=== PATIENT | female | born 1990 | race Caucasian/White ===

== ENCOUNTER 2016-07-19 14:14 | Emergency (ER) | payer MEDICAID ==
[~2016-07-19] VITALS: Wt 63.2 kg
[2016-07-19] MEDS ORDERED: FAMOTIDINE 20 MG INJ IV STA (16:25)
[2016-07-19] MEDS ORDERED: ONDANSETRON 4 MG INJ IV STA (16:25)
[2016-07-19 17:14] LABS: ADD SCAN DIFF NO
[2016-07-19 17:15] LABS: ADD UMIC YES; EOSINOPHILS # 0.1 10^3/ul (0.0-0.5); HEMATOCRIT 39.1 % (37.0-47.0); HEMOGLOBIN 12.6 g/dl (12.0-16.0); MEAN CORPUSCULAR HEMOGLOBIN 30.7 pg (29.0-33.0); MEAN CORPUSCULAR HGB CONC 32.2 g/dl (32.0-37.0); MEAN CORPUSCULAR VOLUME 95.1 fl (82.0-101.0); MEAN PLATELET VOLUME 9.4 fl (7.4-10.4); PLATELET COUNT 235 10^3/UL (140-415); RED BLOOD COUNT 4.11 10^6/ul (4.20-5.40); RED CELL DISTRIBUTION WIDTH 12.2 % (11.5-14.5); URINE BILIRUBIN (Dip) NEGATIVE (NEGATIVE); URINE BLOOD (Dip) NEGATIVE (NEGATIVE); URINE COLOR LT. YELLOW (YELLOW); URINE GLUCOSE (Dip) NEGATIVE (NEGATIVE); URINE KETONES (Dip) NEGATIVE (NEGATIVE); URINE LEUKOCYTE ESTERASE (Dip) TRACE (NEGATIVE); URINE NITRITE (Dip) NEGATIVE (NEGATIVE); URINE TOTAL PROTEIN (Dip) NEGATIVE (NEGATIVE); URINE UROBILINOGEN (Dip) 0.2 E.U./dL (0.1-1.0); WHITE BLOOD COUNT 3.6 10^3/ul (4.8-10.8)
[2016-07-19 17:30] LABS: ALBUMIN 3.7 g/dl (3.3-4.9)
[2016-07-19 17:31] LABS: POTASSIUM 3.9 mmol/L (3.5-5.1)
[2016-07-19 17:32] LABS: CREATININE 0.71 mg/dl (0.44-1.00)
[2016-07-19 17:33] LABS: ALBUMIN/GLOBULIN RATIO 1.23; BACTERIA,URINE FEW; BILIRUBIN,INDIRECT 1.1 mg/dl (0-1.1); BILIRUBIN,TOTAL 1.1 mg/dl (0.2-1.3); TOTAL PROTEIN 6.7 g/dl (6.1-8.1); URINE RBCS 0-2 /HPF (0)
[2016-07-19 17:34] LABS: CALCIUM 8.9 mg/dl (8.4-10.2)
[2016-07-19 18:00] LABS: LYMPHOCYTES # 1.8 10^3/ul (0.8-2.9); NEUTROPHIL # 1.7 10^3/ul (1.6-7.5)
[2016-07-19] MEDS ORDERED: ONDA8TAB14 PO (18:09)
[2016-07-19] MEDS ORDERED: FAMO-18 PO (18:09)
[2016-07-19] MEDS ORDERED: ACET500C5 PO (18:09)
--- NOTE | 2016-07-19 18:12 | ERD ---
ER Documentation Chief Complaint Date/Time DATE: 07/19/16 TIME: 18:10 Chief Complaint ABDOMINAL PAIN AND FEVER AND HEADACHE SINCE YESTERDAY., VOMITING. HPI This 25-year-old female presents with epigastric abdominal pain fever headache and vomiting since yesterday. She feels like she may have it some bad food. She does lose balance as well which were dark colored although she did take Pepto-Bismol yesterday but threw it up. She denies any previous abdominal problems. She denies . ROS All systems reviewed and are negative except as per history of present illness. Medications Home Meds Active Scripts Famotidine* (Pepcid*) 20 Mg Tablet, 20 MG PO BID for 4 Days, #14 TAB Prov:VICKY CRUZ MD 07/19/16 Acetaminophen* (Tylophen*) 500 Mg Capsule, 1 CAP PO Q6H Y for PAIN AND OR ELEVATED TEMP, #15 CAP Prov:VICKY CRUZ MD 07/19/16 Ondansetron (Ondansetron Odt) 8 Mg Tab.rapdis, 8 MG PO Q6H Y for NAUSEA AND/OR VOMITING, #8 TAB Prov:VICKY CRUZ MD 07/19/16 Allergies Allergies: Coded Allergies: No Known Allergy (Unverified , 07/19/16) PMhx/Soc Medical and Surgical Hx: pt denies Medical Hx, pt denies Surgical Hx History of Surgery: No Anesthesia Reaction: No Hx Neurological Disorder: No Hx Respiratory Disorders: No Hx Cardiac Disorders: No Hx Psychiatric Problems: No Hx Miscellaneous Medical Probl: No Hx Alcohol Use: Yes (5 days/week) Hx Substance Use: Yes Hx Tobacco Use: Yes Smoking Status: Current every day smoker Physical Exam Vitals Vital Signs Date Time Temp Pulse Resp B/P Pulse Ox O2 Delivery O2 Flow Rate FiO2 07/19/16 14:36 98.6 85 20 128/81 98 Physical Exam Const: [] Alert, [id number] per Head: Atraumatic Eyes: Normal Conjunctiva ENT: Normal External Ears, Nose and Mouth. Neck: Full range of motion..~ No meningismus. Resp: Clear to auscultation bilaterally Cardio: Regular rate and rhythm, no murmurs Abd: Soft, minimal epigastric tenderness. non distended. Normal bowel sounds Skin: No petechiae or rashes Back: No midline or flank tenderness Ext: No cyanosis, or edema Neur: Awake and alert Psych: Normal Mood and Affect Result Diagram: 07/19/16 1700 07/19/16 1700 Results 24 hrs Laboratory Tests Test 07/19/16 17:00 Alanine Aminotransferase (ALT/SGPT) 30IU/L Albumin 3.7g/dl Albumin/Globulin Ratio 1.23 Alkaline Phosphatase 72IU/L Anion Gap 16 Aspartate Amino Transf (AST/SGOT) 34IU/L Basophils # 0.010^3/ul Basophils % 0.0% Blood Urea Nitrogen 10mg/dl Calcium Level 8.9mg/dl Carbon Dioxide Level 23mmol/L Chloride Level 104mmol/L Creatinine 0.71mg/dl Direct Bilirubin 0.00mg/dl Eosinophils # 0.110^3/ul Eosinophils % 2.0% Globulin 3.00g/dl Glucose Level 89mg/dl Hematocrit 39.1% Hemoglobin 12.6g/dl Indirect Bilirubin 1.1mg/dl Lipase 32U/L Lymphocytes # 1.810^3/ul Lymphocytes % 51.0% Mean Corpuscular Hemoglobin 30.7pg Mean Corpuscular Hemoglobin Concent 32.2g/dl Mean Corpuscular Volume 95.1fl Mean Platelet Volume 9.4fl Monocytes # 0.010^3/ul Monocytes % 1.0% Neutrophils # 1.710^3/ul Neutrophils % 46.0% Nucleated Red Blood Cells # 0.010^3/ul Nucleated Red Blood Cells % 0.0/100WBC Platelet Count 02367^3/UL Potassium Level 3.9mmol/L Red Blood Count 4.1110^6/ul Red Cell Distribution Width 12.2% Sodium Level 139mmol/L Total Bilirubin 1.1mg/dl Total Protein 6.7g/dl Urine Bacteria FEW Urine Bilirubin NEGATIVE Urine Clarity SLIGHTLY CLOUDY Urine Color LT. YELLOW Urine Epithelial Cells MODERATE Urine Glucose NEGATIVE% Urine Hemoglobin NEGATIVE Urine Ketones NEGATIVE Urine Leukocyte Esterase TRACE Urine Microscopic RBC 0-2/HPF Urine Microscopic WBC 2-5/HPF Urine Nitrite NEGATIVE Urine Specific [place] 1.010 Urine Total Protein NEGATIVE Urine Urobilinogen 0.2 E.U./dL Urine pH 6.0 White Blood Count 3.610^3/ul Current Medications Medications (Trade) Dose Ordered Sig/Kari Route PRN Reason Start Time Stop Time Status Last Admin Dose Admin Ondansetron HCl (Zofran Inj) 4 mg ONCE STAT IV 07/19/16 16:25 07/19/16 16:27 DC 07/19/16 17:01 Famotidine (Pepcid Iv) 20 mg ONCE STAT IV 07/19/16 16:25 07/19/16 16:27 DC 07/19/16 17:01 Procedures/MDM Urine shows trace leukocytes and few bacteria otherwise no acute findings. HCG is negative. CBC shows a white blood cell count 3.6 and hemoglobin normal and platelets normal. CMP and lipase normal. Patient was given Zofran 8 mg by mouth and Tylenol and Pepcid. Patient felt better after observation and treatment. Patient presents with signs and symptoms consistent with food poisoning or gastroenteritis. Signs or symptoms do not suggest appendicitis, hepatobiliary disease, pancreatitis, acute abdomen. She will treated with Zofran, Tylenol Pepcid and further observation at home with bland diet and fluids. The patient was stable with no new complaints during the ER course. Clinically, there is no current evidence to suggest meningitis, sepsis, acute abdomen, pneumonia, acute coronary syndrome, pulmonary embolism, or any other emergent condition appearing to require further evaluation or hospitalization. The patient should certainly return for any new or worsening symptoms per the aftercare instructions. They should otherwise follow-up with her primary care doctor for reevaluation this week. Departure Diagnosis: Primary Impression: Vomiting Vomiting type: unspecified Vomiting Intractability: non-intractable Nausea presence: unspecified Qualified Code: R11.10 - Non-intractable vomiting, presence of nausea not specified, unspecified vomiting type Additional Impression: Abdominal pain Abdominal location: epigastric Qualified Code: R10.13 - Epigastric pain Condition: Stable Patient Instructions: Abdominal Pain, Vomiting (6Y-Adult) Additional Instructions: Labs normal today. Likely food poisoning or viral illness should resolve in the next 1-3 days. Recheck for new or worsening symptoms with primary care doctor. VICKY CRUZ MD Jul 19, 2016 18:12
[2016-07-19 18:23] VITALS: BP 124/76; PULSE 68; RESP 20; TEMP 98.6
== END 2016-07-19 18:24 | disposition home or self-care (01) ==
LOC: FTE 14:14
DX: R11.10 Vomiting, unspecified (principal); R10.13 Epigastric pain; F17.210 Nicotine dependence, cigarettes, uncomplicated
CPT/HCPCS: 36415; 80053; 81001; 83690; 85025; 96374; 96375; J2405; Z7502; Z7610; 81003

== ENCOUNTER 2016-09-13 16:18 | Emergency (ER) | payer SELFPAY ==
[~2016-09-13] VITALS: Ht 157.5 cm; Wt 78.0 kg
[~2016-09-13 16:18] MED LIST: ACET500C5 PO; FAMO-18 PO; ONDA8TAB14 PO
[2016-09-13 16:23] VITALS: Ht 157.5 cm; Wt 78.0 kg
[2016-09-13] MEDS ORDERED: HYDR25SU23 PR (19:18)
[2016-09-13] MEDS ORDERED: DOCU-144 PO (19:18)
[2016-09-13] MEDS ORDERED: ACET500C5 PO (19:18)
--- NOTE | 2016-09-13 19:26 | ERD ---
ER Documentation Chief Complaint Date/Time DATE: 09/13/16 TIME: 19:21 Chief Complaint ABD PAIN x 1 week HPI 25-year-old female patient with a past medical history of hemorrhoids presents the ED complaining of rectal pain and slight streaks of blood in her stools. States that she is afraid to have a bowel movement because it worsens the rectal pain. States that her last bowel movement was this morning. 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 Denies having anal sex or being sexually active. States her last menses was on August 24, 2016. Denies any abdominal pain, nausea , vomiting, diarrhea, chest pain, shortness of breath, fever, chills. ROS All systems reviewed and are negative except as per history of present illness. Medications Home Meds Active Scripts Acetaminophen* (Tylophen*) 500 Mg Capsule, 1 CAP PO Q6H Y for PAIN AND OR ELEVATED TEMP, #20 CAP Prov:DILCIA OLVERA PA-C 09/13/16 Hydrocortisone Acetate (Anusol-Hc) 25 Mg Supp.rect, 1 SUPP VT BID Y for HEMORROID PAIN/ITCHING, #12 SUPP.RECT Prov:DILCIA OLVERA PA-C 09/13/16 Docusate Sodium* (Colace*) 100 Mg Capsule, 100 MG PO TID, #30 CAP Prov:DILCIA OLVERA PA-C 09/13/16 Famotidine* (Pepcid*) 20 Mg Tablet, 20 MG PO BID for 4 Days, #14 TAB Prov:VICKY CRUZ MD 07/19/16 Acetaminophen* (Tylophen*) 500 Mg Capsule, 1 CAP PO Q6H Y for PAIN AND OR ELEVATED TEMP, #15 CAP Prov:VICKY CRUZ MD 07/19/16 Ondansetron (Ondansetron Odt) 8 Mg Tab.rapdis, 8 MG PO Q6H Y for NAUSEA AND/OR VOMITING, #8 TAB Prov:VICKY CRUZ MD 07/19/16 Allergies Allergies: Coded Allergies: No Known Allergy (Unverified , 07/19/16) PMhx/Soc History of Surgery: No Anesthesia Reaction: No Hx Neurological Disorder: No Hx Respiratory Disorders: No Hx Cardiac Disorders: No Hx Psychiatric Problems: No Hx Miscellaneous Medical Probl: No Hx Alcohol Use: Yes (5 days/week) Hx Substance Use: Yes Hx Tobacco Use: Yes Physical Exam Vitals Vital Signs Date Time Temp Pulse Resp B/P Pulse Ox O2 Delivery O2 Flow Rate FiO2 09/13/16 16:23 98.3 70 20 141/87 98 Physical Exam Const: [id number]-[id number], well-nourished. In no acute distress. Head: Atraumatic, normocephalic Eyes: Normal Conjunctiva without injection. No purulent discharge. ENT: Normal external ear, nose. Moist oropharynx without tonsillar exudates. Non -erythematous pharynx. Uvula midline. No drooling. No trismus. Neck: No cervical midline tenderness. Full range of motion. No meningismus. No cervical lymphadenopathy. No JVD. Resp: Clear to auscultation bilaterally. No wheezing, rhonchi, rales, or crackles. No accessory muscle use. No retractions. Cardio: Regular rate and rhythm. No murmurs, rubs or gallops. Abd: Soft, nontender, non distended. Normal bowel sounds. No palpable masses. No rebound tenderness. No guarding. Negative McBurney's point. Negative psoas sign. Negative obturator sign. Patient gave consent to do a rectal exam. Tenderness to palpation of the superior portion of patient's anus. External hemorrhoid noted. Nonthrombosed hemorrhoid. No surrounding erythema, fluctuance , induration, edema, bleeding noted. No fissures noted. Skin: No petechiae or rashes Back: No midline tenderness. No CVA tenderness. Ext: No cyanosis, or edema. Neur: Awake and alert. Normal gait. Normal coordination. Psych: Normal Mood and Affect Procedures/MDM This is a 25-year-old female patient with a past medical history of an external hemorrhoid presents to the ED complaining of rectal pain associated with her hemorrhoids. Patient is afebrile and nontoxic-appearing. Patient has normal vital signs. Patient's physical exam is consistent with external hemorrhoids and possible internal hemorrhoids. Nonthrombosed at this time. Patient likely has an acute flareup of her hemorrhoids. Low suspicion for perianal abscess, perirectal abscess, GI bleeding, acute abdomen, appendicitis, cholecystitis, fistula, fissure, diverticulitis, bowel obstruction or other emergent conditions. Discharge medications: Tylenol, Anusol, Colace Follow up with primary care physician in 1-2 days. Instructed patient to return to the ED sooner for any worsening symptoms. Patient's questions were answered. Patient understood and agreed with discharge plan. Patient discharged stable. Departure Diagnosis: Primary Impression: Acute hemorrhoid Condition: Stable Patient Instructions: Understanding Hemorrhoids, Hemorrhoids Referrals: [facility] YOU HAVE RECEIVED A MEDICAL SCREENING EXAM AND THE RESULTS INDICATE THAT YOU DO NOT HAVE A CONDITION THAT REQUIRES URGENT TREATMENT IN THE EMERGENCY DEPARTMENT. FURTHER EVALUATION AND TREATMENT OF YOUR CONDITION CAN WAIT UNTIL YOU ARE SEEN IN YOUR DOCTORS OFFICE WITHIN THE NEXT 1-2 DAYS. IT IS YOUR RESPONSIBILITY TO MAKE AN APPOINTMENT FOR FOLOW-UP CARE. IF YOU HAVE A PRIMARY DOCTOR --you should call your primary doctor and schedule an appointment IF YOU DO NOT HAVE A PRIMARY DOCTOR YOU CAN CALL OUR PHYSICIAN REFERRAL HOTLINE AT IF YOU CAN NOT AFFORD TO SEE A PHYSICIAN YOU CAN CHOSE FROM THE FOLLOWING [facility] [address] [facility] [address] [address] [facility] [address] [facility] [address] [facility] [address] [facility]. [facility]. [address] [facility]. [facility] YOU HAVE RECEIVED A MEDICAL SCREENING EXAM AND THE RESULTS INDICATE THAT YOU DO NOT HAVE A CONDITION THAT REQUIRES URGENT TREATMENT IN THE EMERGENCY DEPARTMENT. FURTHER EVALUATION AND TREATMENT OF YOUR CONDITION CAN WAIT UNTIL YOU ARE SEEN IN YOUR DOCTORS OFFICE WITHIN THE NEXT 1-2 DAYS. IT IS YOUR RESPONSIBILITY TO MAKE AN APPOINTMENT FOR FOLOW-UP CARE. IF YOU HAVE A PRIMARY DOCTOR --you should call your primary doctor and schedule and appointment IF YOU DO NOT HAVE A PRIMARY DOCTOR YOU CAN CALL OUR PHYSICIAN REFERRAL HOTLINE AT . IF YOU CAN NOT AFFORD TO SEE A PHYSICIAN YOU CAN CHOSE FROM THE FOLLOWING [facility] INSTITUTIONS: [facility] [place] [address] [place] [address] [facility] [address] [place] [address] [facility] [address] [place] [address] [facility] Additional Instructions: Call your primary care doctor TOMORROW for an appointment during the next 1-2 days.See the doctor sooner or return here if your condition worsens before your appointment time. DILCIA OLVERA PA-C September 13, 2016 19:26 DILCIA OLVERA PA-C September 13, 2016 19:26
[2016-09-13 19:27] VITALS: BP 122/68; PULSE 78; RESP 16
== END 2016-09-13 19:27 | disposition home or self-care (01) ==
LOC: FTE 16:18
DX: K64.9 Unspecified hemorrhoids (principal); F17.210 Nicotine dependence, cigarettes, uncomplicated
CPT/HCPCS: 99283

== ENCOUNTER 2016-09-24 16:35 | Emergency (ER) | payer SELFPAY ==
[~2016-09-24] VITALS: Wt 77.0 kg
[~2016-09-24 16:35] MED LIST changes: +DOCU-144 PO; +HYDR25SU23 PR
[2016-09-24] MEDS ORDERED: HYDR30CR75 PR (16:53)
[2016-09-24] MEDS ORDERED: HYDR25SU23 PR (16:53)
[2016-09-24] MEDS ORDERED: SENN-53 PO (16:53)
[2016-09-24] MEDS ORDERED: DOCU-144 PO (16:53)
[2016-09-24] MEDS ORDERED: IBUPROFEN 800 MG TAB PO ONE (17:00)
--- NOTE | 2016-09-24 17:42 | ERD ---
ER Documentation Chief Complaint Date/Time DATE: 09/24/16 TIME: 17:40 Chief Complaint RECTAL PAIN X5DAYS WORSE WHEN HAVING A BM HPI Patient is a 25-year-old female with no medical problems who presents with pain. The patient has pain with bowel movement. The patient tried Preparation H. The patient has had these symptoms for 6 days. She was seen here before for the same. She has no fevers. She is taking stool softeners. She does not currently have a primary doctor. She denies any anal sex or anal foreign bodies. ROS All systems reviewed and are negative except as per history of present illness. Medications Home Meds Active Scripts Sennosides* (Senna Lax*) 8.6 Mg Tablet, 1 TAB PO DAILY, #30 TAB Prov:DAMARIS LASSITER MD 09/24/16 Docusate Sodium* (Colace*) 100 Mg Capsule, 100 MG PO BID, #60 CAP Prov:DAMARIS LASSITER MD 09/24/16 Hydrocortisone Acetate* (Anusol-HC*) 30 Gm Cream.gm., 1 APPLIC UT BID for 7 Days , TUB Prov:DAAMRIS LASSITER MD 09/24/16 Hydrocortisone Acetate (Anusol-Hc) 25 Mg Supp.rect, 1 SUPP UT QHS Y for HEMORROID PAIN/ITCHING, #12 SUPP.RECT Prov:DAMARIS LASSITER MD 09/24/16 Acetaminophen* (Tylophen*) 500 Mg Capsule, 1 CAP PO Q6H Y for PAIN AND OR ELEVATED TEMP, #20 CAP Prov:DILCIA OLVERA PA-C 09/13/16 Hydrocortisone Acetate (Anusol-Hc) 25 Mg Supp.rect, 1 SUPP UT BID Y for HEMORROID PAIN/ITCHING, #12 SUPP.RECT Prov:DILCIA OLVERA PA-C 09/13/16 Docusate Sodium* (Colace*) 100 Mg Capsule, 100 MG PO TID, #30 CAP Prov:DILCIA OLVERA PA-C 09/13/16 Famotidine* (Pepcid*) 20 Mg Tablet, 20 MG PO BID for 4 Days, #14 TAB Prov:VICKY CRUZ MD 07/19/16 Acetaminophen* (Tylophen*) 500 Mg Capsule, 1 CAP PO Q6H Y for PAIN AND OR ELEVATED TEMP, #15 CAP Prov:VICKY CRUZ MD 07/19/16 Ondansetron (Ondansetron Odt) 8 Mg Tab.rapdis, 8 MG PO Q6H Y for NAUSEA AND/OR VOMITING, #8 TAB Prov:VICKY CRUZ MD 07/19/16 Allergies Allergies: Coded Allergies: No Known Allergy (Unverified , 07/19/16) PMhx/Soc Medical and Surgical Hx: pt denies Medical Hx, pt denies Surgical Hx History of Surgery: No Anesthesia Reaction: No Hx Neurological Disorder: No Hx Respiratory Disorders: No Hx Cardiac Disorders: No Hx Psychiatric Problems: No Hx Miscellaneous Medical Probl: Yes (hemorrhoids) Hx Alcohol Use: Yes (5 days/week) Hx Substance Use: Yes (Marijuana) Hx Tobacco Use: Yes Smoking Status: Current every day smoker FmHx Family History: No diabetes Physical Exam Vitals Vital Signs Date Time Temp Pulse Resp B/P Pulse Ox O2 Delivery O2 Flow Rate FiO2 09/24/16 16:37 98.8 93 20 126/90 99 Physical Exam Const: Mild distress Head: Atraumatic Eyes: Normal Conjunctiva ENT: Normal External Ears, Nose and Mouth. Neck: Full range of motion..~ No meningismus. Resp: Clear to auscultation bilaterally Cardio: Regular rate and rhythm, no murmurs Abd: Soft, non tender, non distended. Normal bowel sounds Skin: No petechiae or rashes Back: No midline or flank tenderness Ext: No cyanosis, or edema Neur: Awake and alert Rectal: Patient has a external hemorrhoid which is not thrombosed at 6:00, there is no active bleeding at this time Results 24 hrs Current Medications Medications (Trade) Dose Ordered Sig/Kari Route PRN Reason Start Time Stop Time Status Last Admin Dose Admin Ibuprofen (Motrin) 800 mg ONCE ONCE PO 09/24/16 17:00 09/24/16 17:01 DC 09/24/16 17:01 Procedures/MDM Patient is a 25-year-old female presents with an external hemorrhoid. I believe she is having pain from the hemorrhoids and possibly a rectal tear. The patient will be given a prescription for Anusol suppository and Anusol cream. The patient will need outpatient surgery follow-up and may need hemorrhoidectomy. The patient will be given information for Dr. Mena as well as the critical access hospital clinics. She can return for any worsening symptoms. I do not believe she requires further workup or admission the hospital at this time. Departure Diagnosis: Primary Impression: Hemorrhoid Hemorrhoid type: unspecified Qualified Code: K64.9 - Hemorrhoids, unspecified hemorrhoid type Condition: Fair Patient Instructions: Hemorrhoid Surgery Referrals: ABRAHAM MENA MD [facility] [place] YOU HAVE RECEIVED A MEDICAL SCREENING EXAM AND THE RESULTS INDICATE THAT YOU DO NOT HAVE A CONDITION THAT REQUIRES URGENT TREATMENT IN THE EMERGENCY DEPARTMENT. FURTHER EVALUATION AND TREATMENT OF YOUR CONDITION CAN WAIT UNTIL YOU ARE SEEN IN YOUR DOCTORS OFFICE WITHIN THE NEXT 1-2 DAYS. IT IS YOUR RESPONSIBILITY TO MAKE AN APPOINTMENT FOR FOLOW-UP CARE. IF YOU HAVE A PRIMARY DOCTOR --you should call your primary doctor and schedule and appointment IF YOU DO NOT HAVE A PRIMARY DOCTOR YOU CAN CALL OUR PHYSICIAN REFERRAL HOTLINE AT . IF YOU CAN NOT AFFORD TO SEE A PHYSICIAN YOU CAN CHOSE FROM THE FOLLOWING [facility] INSTITUTIONS: [facility] [address] [place] [address] [facility] [address] [place], [place] [id number] [place] [address] [address] [place] [address] Additional Instructions: Call your primary care doctor TOMORROW for an appointment during the next 1-2 days.See the doctor sooner or return here if your condition worsens before your appointment time. DAMARIS LASSITER MD September 24, 2016 17:42
== END 2016-09-24 17:05 | disposition home or self-care (01) ==
LOC: FTE 16:35
DX: K64.4 Residual hemorrhoidal skin tags (principal); F17.210 Nicotine dependence, cigarettes, uncomplicated
CPT/HCPCS: 99284